=== PATIENT | female | born 1950 | race African-American/Black ===

== ENCOUNTER 2016-10-14 10:27 | Day surgery (SDC) | payer OTHER, BC ==
[2016-10-10 15:05] VITALS: BMI 31.6
[2016-10-14] MEDS ORDERED: HEPARIN NA (PORCINE) 5,000 UNITS/ML 1ML VIAL ONE (11:15)
[2016-10-14] MEDS ORDERED: ceFAZolin SODIUM 1 GM VIAL ONE ×3 (12:59→17:44)
[2016-10-14] MEDS ORDERED: GENTAMICIN SO4 80 MG/2 ML VIAL ONE (12:59)
[2016-10-14] MEDS ORDERED: PROPOFOL 20 ML ONE (13:05)
[2016-10-14] MEDS ORDERED: ROCURONIUM BROMIDE 50 MG/5 ML VIAL ONE (13:05)
[2016-10-14] MEDS ORDERED: MIDAZOLAM HCL 2 MG/2 ML SINGLE DOSE VIAL ONE ×2 (13:05→13:06)
[2016-10-14] MEDS ORDERED: DEXAMETHASONE SOD PHOSPHATE 4 MG/1 ML VIAL ONE (13:08)
[2016-10-14] MEDS ORDERED: LIDOCAINE HCL/PF 2% SDV 5ML VIAL ONE ×2 (13:08→16:57)
[2016-10-14] MEDS ORDERED: ONDANSETRON 4 MG/2 ML VIAL ONE ×2 (13:08→16:57)
[2016-10-14] MEDS ORDERED: SODIUM CHLORIDE 0.9% P/F 10 ML VIAL IJ ONE (13:14)
[2016-10-14] MEDS ORDERED: ACETAMINOPHEN INJECTION 100 ML IVPB ONE (13:18)
[2016-10-14] MEDS ORDERED: SCOPOLAMINE HYDROBROMIDE 1 PATCH PATCH.TD72 ONE (13:18)
[2016-10-14] MEDS ORDERED: ONDANSETRON 4 MG/2 ML VIAL IVPB PRN (17:27)
[2016-10-14] MEDS ORDERED: LACTATED RINGERS SOLUTION 1,000 ML IV SCH (17:30)
[2016-10-14] MEDS ORDERED: ONDANSETRON 4 MG/2 ML VIAL IVPUSH PRN (17:31)
[2016-10-14] MEDS ORDERED: PROMETHAZINE HCL 25 MG/1 ML VIAL IVPUSH PRN (17:31)
[2016-10-14] MEDS ORDERED: ceFAZolin SODIUM 1 GM VIAL IVPB ONE (17:49)
[2016-10-14] MEDS ORDERED: CEFAZOLIN 1 GM in DEXTROSE 5%-WATER - 50 ML IVPB SCH (18:00)
[2016-10-14] MEDS: morphine CARPU-JECT 10 MG/1 ML DISP.SYRIN IVPUSH PRN ×2 (19:56→23:44)
[2016-10-14] MEDS ORDERED: ATORVASTATIN CA 40 MG TABLET (FP) PO SCH (22:00)
[2016-10-14] MEDS ORDERED: morphine CARPU-JECT 2 MG/1 ML DISP.SYRIN ONE (23:41)
[2016-10-15] MEDS: oxyCODONE HCL 5 MG TABLET PO PRN ×2 (04:48→11:44)
[2016-10-15 06:25] VITALS: BP 137/64; PULSE 62; TEMP 98.6
[2016-10-15] MEDS: INSULIN SLIDING SCALE (NOVOLOG) 1 VIAL SQ SCH ×2 (06:26→11:44)
[2016-10-15] MEDS: HEPARIN NA (PORCINE) 5,000 UNITS/ML 1ML VIAL SQ SCH ×2 (06:43→09:53)
--- NOTE | 2016-10-15 07:32 | PN ---
Progress Note (short form) - Note Progress Note: all tissues viable, no infections, VSS AF, ok for discharge home.
[2016-10-15] MEDS ORDERED: LETROZOLE 2.5 MG TABLET (FP) PO SCH (10:00)
[2016-10-15] MEDS ORDERED: CEFAZOLIN 1 GM/D5W 50 ML IVPB SCH (10:00)
[2016-10-15] MEDS ORDERED: LISINOPRIL 5 MG TABLET (FP) PO SCH (10:00)
[2016-10-15] MEDS ORDERED: amLODIPine BESYLATE 10 MG TABLET (FP) PO SCH (10:00)
[2016-10-15] MEDS ORDERED: PANTOPRAZOLE 40 MG TABLET (FP) PO SCH (10:00)
--- NOTE | 2016-10-15 13:49 | OP ---
DATE OF OPERATION: 10/14/2016 TITLE OF PROCEDURE: Right-sided reconstructed breast capsulectomy with removal of tissue asset administrator, replacement with silicone gel breast implant, left-sided breast reduction. ATTENDING SURGEON: Say Castillo MD Patient is seen in the holding area, marked in the standing position, awake and aware of all incisions and resulting scars. Risks, benefits, and alternatives to the procedures are discussed. The patient is given a gram of Ancef preoperatively. Sequential compression stockings and SLOANE hose are applied. She was brought to the operating room, placed in supine position. A Ramírez catheter was placed and removed at the end of the procedure. Patient was placed in supine position. Position was carefully checked by surgical and anesthesia team. She was prepped and draped in standard surgical fashion. Timeout was called. Patient, procedure, site, and side were verified. DESCRIPTION OF PROCEDURE: An incision was made along the existing mastectomy scar on the right breast, carried down to the level of the periprosthetic capsule. Capsulotomy was then performed. The tissue asset administrator is evacuated of saline, and it is removed from the capsule. Capsulotomy is performed superiorly. Hemostasis is achieved. Laterally, a capsulectomy is performed to narrow the pocket and to accommodate the new implant. The removed segment of capsule was closed to itself with a series of interrupted 0 PDS figure-of-8 suture. It is found that the AlloDerm, that had been placed on previous operation, was not incorporated, and this AlloDerm is then removed. A large section of AlloDerm capsule is removed from the inferior pole of the breast, which constitutes a more extensive capsulectomy. A small amount of AlloDerm is preserved along the inframammary fold to stabilize the inframammary fold. However, the inferior aspect of the breast flap is scored to allow for a more fill of the breast. The capsule is then copiously irrigated with triple-antibiotic solution. Standard triple-antibiotic solution is used. Using new gloves, the implant was brought into the field, a Natrelle Allergan-style 20 - 700 mL implant is oriented and placed into the pocket. The capsule was then closed with a running 3-0 Monocryl suture. The mastectomy incisions were then closed with a running locking 3-0 buried dermal suture, followed by a running subcuticular 3-0 Monocryl suture. A medial extension to remove a skin fold is then performed and closed primarily with a series of interrupted buried deep dermal 3-0 Monocryl suture, followed by running subcuticular 3-0 Monocryl suture. Attention was then directed toward the contralateral left side where the nipple-areola is traced with a 42-mm cooking cutter. A Carlos-type inverted T-pattern reduction had been planned. Ten-centimeter width pedicle is then traced. With the breast under tourniquet, the pedicle is de-epithelialized with the exception of the nipple-areolar complex. Skin flaps were then elevated superiorly, medially, and laterally. The pedicle was trimmed with the patient being brought to a seated upright position to assess size, relative to the contralateral reconstructed breast. At final excision, the excised tissue between the skin flaps and the pedicle is 711 g. Hemostasis was meticulously achieved. The wound was copiously irrigated with triple-antibiotic solution. A size 10 flat CHRISS drain was brought out through the lateral extent of the incision. The incisions are closed as follows: Half buried mattress, 2-0 nylon sutures used at the inverted-T point, vertical and horizontal limbs closed with a series of interrupted buried deep dermal 3-0 Monocryl suture, followed by a running subcuticular 3-0 Monocryl suture. The nipple-areola is inset after its viability is assured with good dermal bleeding. It is inset with a series of interrupted buried deep dermal 3-0 Monocryl suture, followed by running subcutaneous 4-0 Monocryl suture. The drain is secured with a 3-0 nylon suture. Wounds are dressed with Steri-Strips. Surgical bra is applied. Patient is awoken from anesthesia, having tolerated the procedure well. Marilu [id number]
--- NOTE | 2016-10-16 13:27 | PATH ---
Surgical Pathology Report Patient Name: MIC KELLEY [facility]. Rec. #: [id number] /Age/Gender: 1950 (Age: 66) / F Account: [id number] [facility] Taken: 10/14/2016 Received: 10/14/2016 Reported: 10/16/2016 Physicians: Say Castillo Specimen(s) Received A: RIGHT BREAST TISSUE B: RIGHT BREAST TISSUE JUNIOR PROJECT COORDINATOR C: LEFT BREAST SKIN AND TISSUE D: RIGHT BREAST SKIN AND TISSUE Clinical History Right breast cancer Final Diagnosis A. RIGHT BREAST TISSUE, EXCISION: BENIGN FIBROUS TISSUE WITH AREAS CONSISTENT WITH BREAST IMPLANT CAPSULE. B. CABIN CLEANER, RIGHT BREAST, REMOVAL: CABIN CLEANER CONSISTENT WITH TISSUE JUNIOR PROJECT COORDINATOR (GROSS ONLY). C. 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 UNREMARKABLE SKIN PRESENT. D. RIGHT BREAST, MAMMOPLASTY: BENIGN SKIN WITH FOCAL DERMAL FIBROSIS, AND BENIGN ADIPOSE TISSUE. Comment: Also see prior specimen [id number]. Electronically Signed Ralf Patton M.D. Gross Description A. Received in formalin labeled "right breast tissue," is a 24 g, 16.0 x 8.0 x 0.4 cm aggregate of multiple cadet, irregular portions of AlloDerm with minimal attached fibroadipose tissue. No masses are identified. Clinical Applications Manager sections are submitted in one cassette. B. Received fresh labeled "right breast tissue glass blower helper," is a 15.5 x 13.5 x 3.0 cm cadet, irregular device, consistent with a breast tissue glass blower helper. No soft tissue is present. No sections are submitted, gross only. C. Received in formalin labeled "left breast skin and tissue," is a 766 g, 26.5 x 17.5 x 4.0 cm aggregate of multiple irregular, unoriented portions of fibroadipose tissue and brown, unremarkable skin. Sectioning reveals multifocal white fibrous tissue. No definitive masses are identified. Clinical Applications Manager sections are submitted in 5 cassettes. D. Received in formalin labeled "right breast skin and tissue," is a 6 g, 4.2 x 1.8 cm cadet, elliptical, unoriented portion of skin excised to depth of 2.0 cm. The epidermal surface is unremarkable. Sectioning reveals yellow, lobulated soft tissue. No lesions are identified. Clinical Applications Manager sections are submitted in one cassette. 10/15/201610/15/2016
== END 2016-10-15 12:25 | disposition home or self-care (01) ==
LOC: FASU 10:27 → MERGE 12:00 → FM/S 19:55 → FASU 10-15 12:25
PROVIDERS: ATTEND Plastic Surgery
PROC: 0HRT0JZ Replacement of Right Breast with Synthetic Substitute, Open Approach (ICD-10-PCS; 2016-10-14)
PROC: 0HBU0ZZ Excision of Left Breast, Open Approach (ICD-10-PCS; 2016-10-14)
PROC: 0HNT0ZZ Release Right Breast, Open Approach (ICD-10-PCS; principal; 2016-10-14 14:06)
PROC: 0HPT0NZ Removal of Tissue Expander from Right Breast, Open Approach (ICD-10-PCS; 2016-10-14 14:06)
DX: C50.211 Malignant neoplasm of upper-inner quadrant of right female breast (principal)
CPT/HCPCS: 88300-TC; 88304-TC; 88305-TC; 94760; J1644

== ENCOUNTER 2023-04-17 04:19 | Day surgery (SDC) | payer OTHER, BC ==
[2023-04-15 11:13] VITALS: BMI 26.6
[2023-04-17 11:23] VITALS: TEMP 98.9
[2023-04-17 11:48] VITALS: BP 150/80; PULSE 59; RESP 18
== END 2023-04-17 11:56 | disposition home or self-care (01) ==
LOC: JASU-ENDO 04:19
PROVIDERS: ATTEND Internal Medicine Gastroenterology
PROC: 0DBP8ZX Excision of Rectum, Via Natural or Artificial Opening Endoscopic, Diagnostic (ICD-10-PCS; 2023-04-17)
PROC: 0DBM8ZX Excision of Descending Colon, Via Natural or Artificial Opening Endoscopic, Diagnostic (ICD-10-PCS; principal; 2023-04-17 10:30)
DX: Z12.11 Encounter for screening for malignant neoplasm of colon (principal); D12.4 Benign neoplasm of descending colon; D12.8 Benign neoplasm of rectum; K57.30 Diverticulosis of large intestine without perforation or abscess without bleeding; K64.8 Other hemorrhoids; I10 Essential (primary) hypertension; E11.9 Type 2 diabetes mellitus without complications; Z79.84 Long term (current) use of oral hypoglycemic drugs
CPT/HCPCS: 82962; 88305-TC